=== PATIENT | male | born 2000 | race Caucasian/White ===

== ENCOUNTER 2018-03-16 14:24 | Emergency (ER) | payer OTHER ==
--- NOTE | 2018-03-16 14:30 | EDPHY ---
H & P Time Seen by Provider: 03/16/18 14:26 HPI/ROS: CHIEF COMPLAINT: Suicidal ideation HISTORY OF PRESENT ILLNESS: 18-year-old male arrives via police on an M1 hold after he exchanged text messages with his girlfriend stating that today he might be the last day he sees her . Patient states that it was a heat of the moment statement during an argument with his girlfriend, states that he was not serious about suicidal ideation. He does state that he self inflicted laceration to his left volar wrist yesterday. This was not a suicide attempt. He denies other self-injurious behavior . PRIMARY CARE PROVIDER: REVIEW OF SYSTEMS: 10 systems reviewed and negative with the exception of the elements mentioned in the history of present illness PAST MEDICAL & SURGICAL HISTORY: No pertinent medical or surgical history SOCIAL HISTORY: Denies acute alcohol or drug PHYSICAL EXAM (Prior to examination, patient consented to physical exam, hands were washed and my usual and customary physical exam procedures followed) 1) GENERAL: Well-developed, well-nourished, alert and oriented. Appears to be in no acute distress. Calm cooperative 2) HEAD: Normocephalic, atraumatic 3) HEENT: Pupils equal, round, reactive to light bilaterally. Sclera anicteric. 4) NECK: Full range of motion, no meningeal signs. 5) LUNGS: Clear auscultation bilaterally, no wheezes, no rhonchi, no retractions. 6) HEART: Regular rate and rhythm, no murmur, no heave, no gallop. 7) ABDOMEN: No guarding, no rebound, no focal tenderness, negative McBurney's, negative Santiago's, negative Rovsing's, negative peritoneal sign, 8) MUSCULOSKELETAL: Left volar wrist 3 subacute abrasions, linear. No signs of infection. Soft compartments. Moving all extremities, no focal areas of tenderness, no obvious trauma. No peripheral edema or discoloration. 9) BACK: No CVA tenderness, no midline vertebral tenderness, no fluctuance, no step-off, no obvious trauma, no visual or palpable abnormality. 10) SKIN: No rash, no petechiae. 11) Psychiatric: Patient is oriented X 3, there is no agitation. DIFFERENTIAL DIAGNOSIS: In no particular order including but not limited to depression, suicidal ideation, homicidal ideation (Ishaan Block Caitlyn) Constitutional: Initial Vital Signs Temperature (C) 36.7 C 03/16/18 14:39 Heart Rate 73 03/16/18 14:39 Respiratory Rate 16 03/16/18 14:39 Blood Pressure 120/98 H 03/16/18 14:39 O2 Sat (%) 98 03/16/18 14:39 O2 Delivery Mode Room Air Allergies/Adverse Reactions: No Known Allergies Allergy (Unverified 03/16/18 14:46) Medical Decision Making ED Course/Re-evaluation: 2:33 p.m.: Patient on M1 hold. He is calm and cooperative agrees to diagnostic studies and mental health evaluation. I saw this patient independently based on established practice protocols. Care of patient under supervision of primary supervising physician Dr Price Burrows with whom I discussed case. 5:00 p.m.: Care turned over to Dr. Burrows (Ishaan Block Caitlyn) I assumed care of the patient at 5pm pending psychiatric evaluation. Update at 6:15 p.m.: The patient was evaluated by the mental health team in the case was discussed with the on-call psychiatrist Dr. Conte who has vacated the mental health hold. Patient does contract for safety. The patient was provided outpatient resources. (Walter Burrows) - Data Points Laboratory Results: Laboratory Results 03/16/18 14:38 03/16/18 14:38 03/16/18 03/16/18 03/16/18 14:51 14:38 14:38 WBC 4.55 10^3/uL 10^3/uL (3.80-9.50) RBC 5.81 10^6/uL 10^6/uL (4.40-6.38) Hgb 17.6 g/dL H g/dL (13.7-17.5) Hct 50.6 % % (40.0-51.0) MCV 87.1 fL fL (81.5-99.8) MCH 30.3 pg pg (27.9-34.1) MCHC 34.8 g/dL g/dL (32.4-36.7) RDW 13.1 % % (11.5-15.2) Plt Count 391 10^3/uL 10^3/uL (150-400) MPV 9.4 fL fL (8.7-11.7) Neut % (Auto) 38.5 % L % (39.3-74.2) Lymph % (Auto) 51.0 % H % (15.0-45.0) Phillips % (Auto) 7.9 % % (4.5-13.0) Eos % (Auto) 1.1 % % (0.6-7.6) Baso % (Auto) 1.3 % % (0.3-1.7) Nucleat RBC Rel Count 0.0 % % (0.0-0.2) Absolute Neuts (auto) 1.75 10^3/uL 10^3/uL (1.70-6.50) Absolute Lymphs (auto) 2.32 10^3/uL 10^3/uL (1.00-3.00) Absolute Monos (auto) 0.36 10^3/uL 10^3/uL (0.30-0.80) Absolute Eos (auto) 0.05 10^3/uL 10^3/uL (0.03-0.40) Absolute Basos (auto) 0.06 10^3/uL 10^3/uL (0.02-0.10) Absolute Nucleated RBC 0.00 10^3/uL 10^3/uL (0-0.01) Immature Gran % 0.2 % % (0.0-1.1) Immature Gran # 0.01 10^3/uL 10^3/uL (0.00-0.10) Sodium 140 mEq/L mEq/L (135-145) Potassium 3.8 mEq/L mEq/L (3.3-5.0) Chloride 100 mEq/L mEq/L (97-110) Carbon Dioxide 25 mEq/l mEq/l (22-31) Anion Gap 15 mEq/L H mEq/L (6-14) BUN 14 mg/dL mg/dL (7-23) Creatinine 1.3 mg/dL mg/dL (0.7-1.3) Estimated GFR > 60 Glucose 111 mg/dL H mg/dL (70-100) Calcium 10.9 mg/dL H mg/dL (8.5-10.4) Phosphorus 4.3 mg/dL mg/dL (2.5-4.5) Salicylates < 1.0 mg/dL L mg/dL (2.0-20.0) Urine Opiates Screen NEGATIVE (NEGATIVE) Acetaminophen < 10 mcg/mL L mcg/mL (10-30) Urine Barbiturates NEGATIVE (NEGATIVE) Ur Phencyclidine Scrn NEGATIVE (NEGATIVE) Ur Amphetamine Screen NEGATIVE (NEGATIVE) U Benzodiazepines Scrn NEGATIVE (NEGATIVE) Urine Cocaine Screen NEGATIVE (NEGATIVE) U Marijuana (THC) Screen NON-NEGATIVE H (NEGATIVE) Ethyl Alcohol < 10 mg/dL mg/dL (0-10) Departure - Departure Disposition: Home, Routine, Self-Care Clinical Impression: Depression Condition: Good Instructions: Depression (ED) Additional Instructions: 1. Please follow-up with the mental health resources provided in the ED today. 2. [facility] does operate a 24/7 psychiatric crisis unit located at [facility]. The telephone number for the 24 hour crisis center is [phone]. 3. Please return to the ED if you are feeling suicidal, having thoughts of harming yourself/others or should you feel unsafe or have worsening symptoms. Referrals: [facility] [Clinic] - As per Instructions
[2018-03-16 14:41] LABS: PLATELET COUNT 391 10^3/uL (150-400)
[2018-03-16 18:26] VITALS: BP 115/81
--- NOTE | 2018-03-16 18:36 | ASMTTLCEVL ---
TLC Evaluation - Basic Information Evaluation Start Date and 03/16/2018 04:30 PM Time Hospital Status Answers: M1 Hold 72-hr M1 Hold Start Date 03/16/2018 02:00 PM and Time Patient statement Notes: This morning my gf sent me a text saying she couldnt handle our relationship and wanted out.. This am I was running on 2 hours of sleep and I had midterms triggered something. I texted her and said and might not see her again. Narrative Notes: Pt is a 18 year old male who presented to [facility] on an M1 hold that from [employer] police after he texted his girlfriend a message saying she may not see him again. Pt stated he and his girlfriend were having conflict and she stated she wanted to be alone and he thought she was breaking up with him. Pt stated he felt overwhelmed at the moment as he only had two hours of sleep and was in the middle of midterms. In addition, he feels he has a lot of stressors in his life currently, as his parents are , a couple of his friends have and his younger brother is having legal problems. Pt stated he realizes this text he sent his girlfriend was very impulsive and stated. I just had a whole bunch of emotions at once. Shes my only solid support. I never meant what I said. Pt reports he feels like he is feeling depressed and feels like he needs to start seeing a therapist but does not know where to look or what type of therapist he would need. This typewriter ribbon winder spoke with GF Kelton who stated she text pt earlier today and told him she felt like she needed to be on her own and received a text stating, You arent gonna see me in this world again. Kelton stated she was very concerned and left class and called 911 and went to patients apartment to find him but he was not there. She stated he was not answering her calls and she called about 200 times. She stated she believes pt is depressed and would benefit from counseling. This typewriter ribbon winder also spoke with pts mother Mingo who stated she is aware that pt is struggling with depression and stated pt is open to receiving therapy and she is willing to pay for his therapy. She stated she has found a couple of therapist in [place] and pt has the names and numbers. Katidavid agrees with the plan to discharge pt and stated either she or pt's father will be here this weekend to support pt if he needs it. Diagnosis History Notes: Pt denied any dx history but stated, Feels like Im struggling with depression and anxiety but never to the point of wanting to commit suicide or harming self. Prior suicide attempts Notes: Pt denied any prior suicide attempts. Pt stated I feel like I'm struggling with anxiety and depression but never to the point of wanting to commit suicide or harming myself. Prior hospitalizations Notes: Pt denied any prior hospitalizations. Treatment Responses Notes: N/A History of violence Notes: pt denied any hx of hospitalization Therapist: None Psychiatrist: None Medications (name, dosage, route, freq uency) Notes: None Allergies/Reaction Notes: Nka Sleep Notes: Wnl Appetite Notes: Wnl Medical/Surgical history Notes: None reported. Substance use history (frequency, intensity, his tory, duration) Notes: Pt stated he smokes marijuana occasionally and states he is a light drinker. Pts utox was positive for marijuana and bal was .0. Family composition Notes: Pts parents live in [place], [place]. Pt has a 16 year old brother. Need for family Answers: No participation in patient's care Family psychiatric/substance abuse history Notes: Pt was adopted. Pts adopted mother stated his mother suffers from depression and has a hx of suicidal thoughts and is a recovering alcoholic. Developmental history Notes: Pt grew up in [place], [place]. Pt reports having very supportive parents and reported having a happy childhood.pPt denied ADD and pt denied any concussions. Abuse concerns Answers: None Marital status/children Notes: Unmarried. No children. Living situation Notes: Pt lives in an apartment in [place]. Sexual history/orientation Notes: Heterosexual Peer support/family strengths Notes: Pt identified Kelton as his main support. Education level/history Notes: Pt is sophomore at [employer]. Work history Notes: Pt is not working. Notes: None reported. Legal Notes: Pt denied any legal problems. Yazdanism/Spiritual Notes: None that would interfere tx. Leisure Notes: Pt states he is a car person, plays basketball and enjoys outdoor stuff. Collateral Notes: SUNDARC- Raoul Gf- Kelton Patient's strengths Answers: Honest (Please select at least TWO strengths): Insightful Intelligent Supportive Family Willingness TLC Evaluation - Mental Status Exam Appearance: Answers: Appropriate Eye Contact: Answers: Good/Direct Mood: Answers: Euthymic Affect: Answers: Appropriate Behavior: Answers: Cooperative Speech: Answers: Relevant Logical Clear Coherent Thought Process: Answers: Organized Oriented Alert Insight: Answers: Good Judgement: Answers: Fair Depression Answers: Sad Mood Signs/Symptoms: Anxiety Signs/Symptoms Answers: Generalized Anxiety Hallucinations: Answers: None Pt reported to have Answers: No suicidal/self-injuring ideation/behavior? Pt reported to be making Answers: Yes suicidal/self-injuring threats? Pt reported to have Answers: No aggression/assault ideation/behavior? Pt reported to be making Answers: No aggression/assault threats? Pt exhibits inability to Answers: No care for self/grave disability? Ideation/behavior is Answers: No chronic? Patient has a specific Answers: No plan? History of Answers: No aggressive/assaultive ideation, behavior, or threats? History of serious Answers: No physical harm to self/others while in treatment setting? TLC Evaluation - Suicide/Homicide Risk Suicide Risk Factors: Answers: Major Depression School Difficulties Homicide/violence risk Answers: None factors: Current Suicidal Answers: No Ideation? Current Suicidal Ideation Answers: Yes in the Past 48 Hours? Current Suicidal Ideation Answers: No in the Past Month? Current Suicidal Answers: No Ideation, Worst Ever? Suicide Internal Answers: Absence of Psychosis Protective Factors: Suicide External Answers: Social Support Protective Factors: Ranking of patient's Answers: Low suicidal risk: Ranking of patient's Answers: Low homicidal risk: TLC Evaluation - Wrap-up AXIS I Diagnosis (include DSM-V and ICD-10 codes), must also be entered in official.fm, which is the source of truth. Notes: Major Depressive Disorder, single episode, moderate 296.22 (F32.1) In consultation with [facility] ED physician, Price Burrows MD, and on-call psychiatrist, Mariia Conte MD, both concurred that pt does not appear to meet 27-65 criteria requiring psychiatric hospitalization as pt does not appear to be an imminent risk of harm to self/others/gravely disabled due to a mental illness condition. Evaluation End Date and 03/16/2018 06:30 PM Time (HH:MM): Date Signed: 03/16/2018 06:35 PM Electronically Signed By:Chanelle Canales
--- NOTE | 2018-03-16 18:37 | ASMTTCLDSP ---
TLC Discharge Disposition If Answers: Yes DISCHARGED: Patient/family given suicide hotline info & SAMHSA brochure? Discharge Concerns/Recommendations: Notes: In consultation with [facility] ED physician, Price Burrows MD, and on-call psychiatrist, Mariia Conte MD, both concurred that pt does not appear to meet 27-65 criteria requiring psychiatric hospitalization as pt does not appear to be an imminent risk of harm to self/others/gravely disabled due to a mental illness condition. Date and time M1 hold 03/16/2018 06:00 PM vacated (time format is hh:mm): Date Signed: 03/16/2018 06:36 PM Electronically Signed By:Chanelle Canales
== END 2018-03-16 18:40 | disposition home or self-care (01) ==
DX: F32.9 Major depressive disorder, single episode, unspecified (principal)
CPT/HCPCS: 80305; G0480